=== PATIENT | male | born 1940 | race Caucasian/White ===

== ENCOUNTER 2017-08-02 15:57 | Emergency (ER) | payer MEDICARE ==
[~2017-08-02] VITALS: Ht 167.6 cm; Wt 66.8 kg
[~2017-08-02 15:57] MED LIST: LATA.005%O OU; OYST500T77 PO; PROP1TAB67
[2017-08-02 16:04] VITALS: BP 159/63; PULSE 83; RESP 16; TEMP 97.8; O2SAT 98
[2017-08-02] MEDS ORDERED: CENTCHW4 CHEW (16:31)
[2017-08-02] MEDS ORDERED: MAGN500T2 PO (16:31)
[2017-08-02] MEDS ORDERED: CALC1TAB12 PO (16:31)
[2017-08-02] MEDS ORDERED: DOCU250C7 PO (16:31)
[2017-08-02] MEDS ORDERED: PROP40TA3 PO (16:31)
[2017-08-02] MEDS ORDERED: ATOR40TA16 PO (16:31)
[2017-08-02 17:06] LABS: BASOPHIL % 0.7 % (0.0-2.0); EOSINOPHIL # 0.1 TH/MM3 (0-0.4); EOSINOPHIL % 2.5 % (0.0-4.0); HEMATOCRIT 39.3 % (39.0-51.0); LYMPH % 30.7 % (9.0-44.0); LYMPHOCYTE # 1.6 TH/MM3 (1.0-4.8); MEAN CELL VOLUME 90.3 FL (80.0-100.0); MEAN CORPUSCULAR HEMOGLOBIN 29.8 PG (27.0-34.0); MEAN PLATELET VOLUME 7.6 FL (7.0-11.0); MONO % 10.8 % (0.0-8.0); MONOCYTE # 0.6 TH/MM3 (0-0.9); NEUT % 55.3 % (16.0-70.0); PLATELET COUNT 209 TH/MM3 (150-450); RED BLOOD COUNT 4.35 MIL/MM3 (4.50-5.90); WHITE BLOOD COUNT 5.3 TH/MM3 (4.0-11.0)
[2017-08-02 17:30] VITALS: BP 123/61; PULSE 74; RESP 12; O2SAT 97
--- NOTE | 2017-08-02 18:13 | PD ---
HPI Chief Complaint: GI Complaint Time Seen by Provider: 17:42 Travel History International Travel<30 days: No Contact w/Intl Traveler<30days: No Traveled to known affect area: No History of Present Illness HPI GI bleed. States he had a bowel movement this morning with mild constipation otherwise no difficulty. Proceeded to the yard to work states he worked for several hours. When into shower and felt as if the water was slightly more discolored than it should be with general work. States he went to dry himself off and noticed some blood on the towel as well as some blood dropping on the floor as he was standing there. Placed a washcloth with significant amounts of blood per the patient. Colonoscopy 3-4 years ago with benign polyps. No family history of colon cancer. Denies any nausea or vomiting. He is not on any blood thinners. He does not take aspirin. PFSH Past Medical History Arthritis: Yes Asthma: No Autoimmune Disease: No Blood Disorders: No Anxiety: No Depression: No Heart Rhythm Problems: No Cancer: No Cardiovascular Problems: Yes (MITRAL VALVE PROLAPSE) High Cholesterol: Yes Chemotherapy: No Chest Pain: Yes Congestive Heart Failure: No COPD: No Cerebrovascular Accident: No Diabetes: No Diminished Hearing: Yes (BILAT W/HEARING AIDES) Endocrine: No GERD: No Glaucoma: Yes Genitourinary: Yes Headaches: Yes Hepatitis: No Hiatal Hernia: No Hypertension: No Immune Disorder: No Kidney Stones: Yes Musculoskeletal: Yes Neurologic: Yes (HYDROCEPHALUS) Psychiatric: No Reproductive: No Respiratory: No Migraines: No Myocardial Infarction: No Radiation Therapy: No Renal Failure: No Seizures: No Sickle Cell Disease: No Sleep Apnea: No Thyroid Disease: No Ulcer: No Influenza Vaccination: Yes Past Surgical History Abdominal Surgery: Yes (BILATERAL INGUINAL HERNIA, UMBILICUS HERNIA) AICD: No Appendectomy: No Arteriovenous Shunt: No Body Medical Devices: V/P SHUNT Cardiac Surgery: No Cholecystectomy: No Ear Surgery: No Endocrine Surgery: No Eye Surgery: No Genitourinary Surgery: No Gynecologic Surgery: No Insulin Pump: No Joint Replacement: No Neurologic Surgery: Yes (SHUNT FOR HYDROCEPHALUS) Oral Surgery: No Pacemaker: No Thoracic Surgery: No Tonsillectomy: Yes Social History Alcohol Use: Yes (OCCASIONAL) Tobacco Use: No Substance Use: No Allergies-Medications (Allergen,Severity, Reaction): Coded Allergies: aspirin (Unverified Allergy, Severe, HEADACHES, 2/24/18) Reported Meds & Prescriptions Reported Meds & Active Scripts Active Reported Magnesium Oxide 500 Mg Tab 500 Mg PO DAILY Docusate Sodium 250 Mg Cap 250 Mg PO DAILY Calcium 500 +D (Calcium Carbonate-Cholecalciferol) 500-400 Mg-Unit Tab 2 Tab PO DAILY Centrum (Multiple Vitamins W/ Minerals) 1 Chew 1 Tab CHEW DAILY Propranolol (Propranolol HCl) 40 Mg Tab 40 Mg PO Q12HR Atorvastatin (Atorvastatin Calcium) 40 Mg Tab 40 Mg PO HS Review of Systems General / Constitutional: No: Fever Eyes: No: Visual changes HENT: No: Headaches Cardiovascular: No: Chest Pain or Discomfort Respiratory: No: Shortness of Breath Gastrointestinal: Positive: Hematochezia, Constipation, No: Abdominal Pain Genitourinary: No: Dysuria Musculoskeletal: No: Pain Skin: No Rash Neurologic: No: Weakness Psychiatric: No: Depression Endocrine: No: Polydipsia Hematologic/Lymphatic: No: Easy Bruising Physical Exam Narrative GENERAL: Well-nourished, well-developed patient. SKIN: Focused skin assessment warm/dry. HEAD: Normocephalic. EYES: No scleral icterus. No injection or drainage. NECK: Supple, trachea midline. No JVD or lymphadenopathy. CARDIOVASCULAR: Regular rate and rhythm without murmurs, gallops, or rubs. RESPIRATORY: Breath sounds equal bilaterally. No accessory muscle use. GASTROINTESTINAL: Abdomen soft, non-tender, nondistended. MUSCULOSKELETAL: No cyanosis, or edema. BACK: Nontender without obvious deformity. No CVA tenderness. Rectal exam tone is normal, washcloth was placed in his underwear with a mild amount of blood on it. External hemorrhoids noted with 1 actively bleeding open hemorrhoid. Compression applied with resolution of bleeding. Data Data Last Documented VS Vital Signs Date Time Temp Pulse Resp B/P (MAP) Pulse Ox O2 Delivery O2 Flow Rate FiO2 08/02/17 18:27 76 16 120/65 (83) 95 Room Air 08/02/17 16:04 97.8 Orders Orders Complete Blood Count With Diff (08/02/17 16:45) Ct Abd/Pel W Iv Contrast(Rout) (08/02/17 ) Basic Metabolic Panel (Bmp) (08/02/17 18:15) Labs Laboratory Tests Test 08/02/17 16:45 2/24/18 18:20 White Blood Count 5.3 TH/MM3 Red Blood Count 4.35 MIL/MM3 Hemoglobin 13.0 GM/DL Hematocrit 39.3 % Mean Corpuscular Volume 90.3 FL Mean Corpuscular Hemoglobin 29.8 PG Mean Corpuscular Hemoglobin Concent 33.0 % Red Cell Distribution Width 14.0 % Platelet Count 209 TH/MM3 Mean Platelet Volume 7.6 FL Neutrophils (%) (Auto) 55.3 % Lymphocytes (%) (Auto) 30.7 % Monocytes (%) (Auto) 10.8 % Eosinophils (%) (Auto) 2.5 % Basophils (%) (Auto) 0.7 % Neutrophils # (Auto) 3.0 TH/MM3 Lymphocytes # (Auto) 1.6 TH/MM3 Monocytes # (Auto) 0.6 TH/MM3 Eosinophils # (Auto) 0.1 TH/MM3 Basophils # (Auto) 0.0 TH/MM3 CBC Comment DIFF FINAL Differential Comment Blood Urea Nitrogen 24 MG/DL Creatinine 0.98 MG/DL Random Glucose 94 MG/DL Calcium Level 9.3 MG/DL Sodium Level 140 MEQ/L Potassium Level 3.9 MEQ/L Chloride Level 106 MEQ/L Carbon Dioxide Level 29.1 MEQ/L Anion Gap 5 MEQ/L Estimat Glomerular Filtration Rate 74 ML/MIN [facility] Medical Decision Making Medical Screen Exam Complete: Yes Emergency Medical Condition: Yes Differential Diagnosis GI bleed, hemorrhoid, constipation Narrative Course Assessment and plan discussed with patient and at bedside. CBC did not reveal anemia. CT the abdomen and pelvis pending. I think the this is most likely bleeding from a ruptured hemorrhoid. Physician Communication Physician Communication Case discussed and care transferred to Javier Rodriguez MD Aug 02, 2017 18:13
[2017-08-02 18:27] VITALS: BP 120/65; PULSE 76; RESP 16; O2SAT 95
[2017-08-02 18:48] LABS: CALCIUM 9.3 MG/DL (8.5-10.1)
[2017-08-02 18:49] LABS: BICARBONATE 29.1 MEQ/L (21.0-32.0)
[2017-08-02 18:52] LABS: CREATININE 0.98 MG/DL (0.60-1.30)
[2017-08-02] MEDS ORDERED: IOHEXOL 350 MG/ML 10 ML VIAL (for RAD DIAG) IVCONTRAST ONE (19:05)
--- NOTE | 2017-08-02 19:15 | PD ---
Physical Exam Date Seen by Provider: Aug 02, 2017 Time Seen by Provider: 19:14 Narrative Accepted in transfer of care from Dr. Smith Data Data Last Documented VS Vital Signs Date Time Temp Pulse Resp B/P (MAP) Pulse Ox O2 Delivery O2 Flow Rate FiO2 08/02/17 20:37 74 18 124/53 (76) 78 18 127/61 (83) 83 18 109/68 (82) 08/02/17 18:27 95 Room Air 08/02/17 16:04 97.8 Orders Orders Complete Blood Count With Diff (08/02/17 16:45) Ct Abd/Pel W Iv Contrast(Rout) (08/02/17 ) Basic Metabolic Panel (Bmp) (08/02/17 18:15) Orthostatic Vital Signs (08/02/17 19:15) Iohexol 350 Inj (Omnipaque 350 Inj) (08/02/17 19:05) Hemoglobin (Hgb) (08/02/17 20:41) Ed Discharge Order (08/02/17 21:28) Labs Laboratory Tests Test 08/02/17 16:45 08/02/17 18:20 08/02/17 20:50 White Blood Count 5.3 TH/MM3 Red Blood Count 4.35 MIL/MM3 Hemoglobin 13.0 GM/DL 12.6 GM/DL Hematocrit 39.3 % Mean Corpuscular Volume 90.3 FL Mean Corpuscular Hemoglobin 29.8 PG Mean Corpuscular Hemoglobin Concent 33.0 % Red Cell Distribution Width 14.0 % Platelet Count 209 TH/MM3 Mean Platelet Volume 7.6 FL Neutrophils (%) (Auto) 55.3 % Lymphocytes (%) (Auto) 30.7 % Monocytes (%) (Auto) 10.8 % Eosinophils (%) (Auto) 2.5 % Basophils (%) (Auto) 0.7 % Neutrophils # (Auto) 3.0 TH/MM3 Lymphocytes # (Auto) 1.6 TH/MM3 Monocytes # (Auto) 0.6 TH/MM3 Eosinophils # (Auto) 0.1 TH/MM3 Basophils # (Auto) 0.0 TH/MM3 CBC Comment DIFF FINAL Differential Comment Blood Urea Nitrogen 24 MG/DL Creatinine 0.98 MG/DL Random Glucose 94 MG/DL Calcium Level 9.3 MG/DL Sodium Level 140 MEQ/L Potassium Level 3.9 MEQ/L Chloride Level 106 MEQ/L Carbon Dioxide Level 29.1 MEQ/L Anion Gap 5 MEQ/L Estimat Glomerular Filtration Rate 74 ML/MIN [facility] Medical Record Reviewed: Yes Supervised Visit with ROCHELLE: No Interpretation(s) Last Impressions Abdomen/Pelvis CT 08/02/17 0000 Signed Impressions: Service Date/Time: Wednesday, August 02, 2017 19:00 - CONCLUSION: No acute abnormality is identified to explain the clinical symptoms. There is mild sigmoid diverticulosis. No inflammatory changes or mass is seen. James Wong MD CBC & BMP Diagram 08/02/17 16:45 08/02/17 18:20 Calcium Level 9.3 08/02/17 20:50 Vital Signs Date Time Temp Pulse Resp B/P (MAP) Pulse Ox O2 Delivery O2 Flow Rate FiO2 08/02/17 20:37 74 18 124/53 (76) 78 18 127/61 (83) 83 18 109/68 (82) 08/02/17 18:27 76 16 120/65 (83) 95 Room Air 08/02/17 17:30 74 12 123/61 (81) 97 Room Air 08/02/17 16:04 97.8 83 16 159/63 (95) 98 Differential Diagnosis Accepted in transfer of care from Dr. Smith; please refer to his dictation Narrative Course Accepted in transfer of care from Dr. Smith; follow up pending CT and disposition Patient aware of lab results vital signs imaging results and stable for outpatient management with documented noted abnormal hemorrhoids per prior provider and stable hemoglobin over 4 hour window patient will be encouraged to follow-up with his primary care provider and return immediately to the emergency department for any concerns or change in condition Diagnosis Primary Impression: Rectal bleeding Additional Impression: Hemorrhoids Referrals: Primary Care Physician 2 days Patient Instructions: General Instructions Additional Instruction: Increase fluid hydration Follow-up with primary care provider Return to the emergency department for concerns or change in condition Med/Other Pt SpecificInfo: No Change to Meds Disposition: 01 DISCHARGE HOME Condition: Stable Rae Daily MD Aug 02, 2017 19:15
--- NOTE | 2017-08-02 19:23 | RADRPT ---
EXAM DATE/TIME: 08/02/2017 19:00 [place] COMPARISON: CT ABDOMEN & PELVIS W/O CONTRAST, August 12, 2009, 19:19. INDICATIONS : Blood in stool. IV CONTRAST: 75 cc Omnipaque 350 (iohexol) IV ORAL CONTRAST: No oral contrast ingested. RADIATION DOSE: 8.39 CTDIvol (mGy) MEDICAL HISTORY : Cardiovascular disease. Hydrocephalus, Mitral valvle prolapse SURGICAL HISTORY : Inguinal hernia repair. Umbilical hernia repair.Tonsillectomy.AV Shunt ENCOUNTER: Initial ACUITY: 1 day PAIN SCALE: 0/10 LOCATION: Abdomen. TECHNIQUE: Volumetric scanning of the abdomen and pelvis was performed. Using automated exposure control and ad justment of the mA and/or kV according to patient size, radiation dose was kept as low as reasonably achievable to obtain optimal diagnostic quality images. DICOM format image data is available electro nically for review and comparison. FINDINGS: There is mild respiratory motion artifact. LOWER LUNGS: The visualized lower lungs are clear. LIVER: Homogeneous density with 2 low density lesions measuring 9 mm and 15 mm which have density measuremen ts consistent with simple hepatic cysts. There is an incidental 5 mm low-density lesion in the left l obe that is too small to characterize. There is no dilation of the biliary tree. No calcified galls tones. SPLEEN: Normal size without lesion. PANCREAS: Within normal limits. KIDNEYS: Normal in size and shape. There is no mass, stone or hydronephrosis. There are 2 low-density lesions in the left kidney measuring 12 mm and 13 mm both of which have density measurements consistent with simple cysts. ADRENAL GLANDS: Within normal limits. VASCULAR: There is no aortic aneurysm. There is mild atherosclerotic disease. BOWEL/MESENTERY: The stomach, small bowel, and colon demonstrate no acute abnormality. There is no free intraperitone al air or fluid. Appendix is normal. There is sigmoid diverticulosis. ABDOMINAL WALL: There is a small fat containing umbilical hernia. [employer] shunt is present with tubing distal tip in the l eft lower quadrant. No abnormal fluid collection is adjacent to the tip. RETROPERITONEUM: There is no lymphadenopathy. BLADDER: No wall thickening or mass. REPRODUCTIVE: Within normal limits. INGUINAL: No lymphadenopathy is present. There is a small fat containing left inguinal hernia that also contain s fluid. MUSCULOSKELETAL: There are degenerative changes of the lumbar spine. No acute osseous abnormality is identified. CONCLUSION: No acute abnormality is identified to explain the clinical symptoms. There is mild sigmoid diverticul osis. No inflammatory changes or mass is seen. James Wong MD on August 02, 2017 at 19:16 Board Certified Radiologist. This report was verified electronically.
[2017-08-02 20:37] VITALS: BP_SYST 109; BP_SYST 124; BP_SYST 127; BP_DIAS 53; BP_DIAS 61; BP_DIAS 68; RESP 18
[2017-08-02 21:53] VITALS: BP 122/64
== END 2017-08-02 22:02 | disposition home or self-care (01) ==
LOC: PHED 15:57
DX: K62.5 Hemorrhage of anus and rectum (principal); K64.9 Unspecified hemorrhoids; I25.10 Atherosclerotic heart disease of native coronary artery without angina pectoris; I34.1 Nonrheumatic mitral (valve) prolapse; E78.00 Pure hypercholesterolemia, unspecified; G91.9 Hydrocephalus, unspecified; Z98.2 Presence of cerebrospinal fluid drainage device; Z87.442 Personal history of urinary calculi; Z79.899 Other long term (current) drug therapy
CPT/HCPCS: 74177; 80048; 85018; 85025; 99284; Q9967

== ENCOUNTER 2018-02-04 18:04 | Observation (INO) ==
[2018-02-04 18:23] LABS: Baso % (Auto) 0.7 % (0.0-2.0); Eos # (Auto) 0.1 th/mm3 (0.0-0.4); Eos % (Auto) 1.3 % (0.0-4.0); Hemoglobin 13.9 gm/dL (13.0-17.0); Lymph # (Auto) 1.5 th/mm3 (1.0-4.8); Mean Corpuscular HGB Conc 33.1 % (32.0-36.0); Mean Corpuscular Hemoglobin 30.2 pg (27.0-34.0); Mean Corpuscular Volume 91.3 fL (80.0-100.0); Mean Platelet Volume 7.9 fL (7.0-11.0); Mono # (Auto) 0.7 th/mm3 (0.0-0.9); Mono % (Auto) 12.8 % (0.0-8.0); Neut # (Auto) 3.2 th/mm3 (1.8-7.7); Neut % (Auto) 58.2 % (16.0-70.0); Platelet Count 183 th/mm3 (150-450); Red Cell Distribution Width 13.2 % (11.6-17.2); White Blood Count 5.5 th/mm3 (4.0-11.0)
[2018-02-04 18:31] LABS: Chloride 105 meq/L (98-107); Potassium 3.8 meq/L (3.5-5.1); Sodium 141 meq/L (136-145)
[2018-02-04 18:34] LABS: Calcium 9.3 mg/dL (8.5-10.1)
--- NOTE | 2018-02-04 18:34 | ED ---
HPI General Chief complaint: Chest Pain Stated complaint: CHEST PAIN Time Seen by Provider: 02/04/18 19:42 Source: patient, family, RN notes reviewed and old records reviewed Mode of arrival: ambulatory History of Present Illness HPI narrative: 77yM presenting with left chest/ shoulder pain. The patient states that approximately 30 minutes prior to arrival he began to have "pressure -like" left upper chest/ shoulder pain which radiates into his arm, moderate intensity, severe, constant, not made better or worse by anything, associated with diaphoresis. He denies lightheadedness, chest pain, dyspnea, or palpitations. Family history significant for brother with fatal DE in his late 70s and father with fatal DE in his 90s. Related Data Home Medications Medication Instructions Recorded Confirmed acetaminophen 650 mg PO Q8H 02/04/18 02/04/18 aspirin 162 mg PO ONCE 02/04/18 02/04/18 atorvastatin 40 mg PO HS 02/04/18 02/04/18 docusate sodium [Stool Softener] 100 mg PO DAILY 02/04/18 02/04/18 gabapentin 200 mg PO BID 02/04/18 02/04/18 hydrocodone-acetaminophen 1 tab PO Q4-6H PRN 02/04/18 02/04/18 magnesium 500 mg PO DAILY 02/04/18 02/04/18 tamsulosin 0.4 mg PO HS 02/04/18 02/04/18 therapeutic multivitamin 1 tab PO DAILY 02/04/18 02/04/18 [Thera-Tabs] Allergies Allergy/AdvReac Type Severity Reaction Status Date / Time aspirin Allergy Severe HEADACHES Verified 02/04/18 18:28 Review of Systems ROS: all other systems reviewed are negative Constitutional Denies fever(s) Eyes Denies blurry vision ENT Denies nasal congestion Cardiovascular Denies dyspnea Respiratory Denies dyspnea Gastrointestinal Denies nausea Genitourinary Denies dysuria Musculoskeletal Denies back pain Neurologic Denies confusion Psychiatric Denies confusion PMFSH History History Provided By: Patient Social History Social History Substance History: No History of Abuse Second Hand Smoke Exposure: No Smoking Status: Former smoker How Often Do You Have a Drink Containing Alcohol: 2 to 4 times a month Recent Travel in [facility] within the Last 8 Weeks: No Recent Out of Country Travel within the Last 8 Weeks: No Exam Const General: healthy appearing and no acute distress HENMT Head: normocephalic and atraumatic Face and sinus: normal facial exam Eyes General: appearance normal, both eyes and all related structures Pupils: PERRL Chest Chest: normal inspection of the chest Resp Effort & Inspection: normal respiratory effort Auscultation: no rhonchi and no wheezes Other: Lungs clear to auscultation bilaterally Cardio Rate: regular rate Rhythm: regular rhythm GI Inspection: non-distended Palpation: soft and nontender Skin Other: Palms are mildly diaphoretic Neuro General: alert, awake, oriented x3 and no focal motor deficits Psych Affect: normal affect Course Initial Documented Vital Signs Temperature 97.5 F L 02/04/18 18:28 Pulse Rate 97 H 02/04/18 18:28 Respiratory Rate 18 02/04/18 18:28 Blood Pressure 128/69 02/04/18 18:28 Pulse Oximetry 98 02/04/18 18:28 Last Documented Vital Signs Temperature 98.6 F 02/04/18 21:45 Pulse Rate 78 02/04/18 22:00 Respiratory Rate 20 02/04/18 21:45 Blood Pressure 111/71 02/04/18 21:45 Pulse Oximetry 97 02/04/18 21:45 Sign Out Sign Out Data: Patient Sign Out occurred on 02/04/18 at 19:42. Patient's care was discussed, and care was transferred from Yesi Thakur DO to Rae Daily MD. Sign Out Comment: Patient needs chest pain center obs, HEART score 5 Took aspirin prior to arrival Last updated by Yesi Thakur DO at 02/04/18 19:40 Post-Handoff Eval: Accepted in transfer of care for patient admission to chest pain center per protocol Clinical Decision Support HEART Score Questions History: Moderately suspicious EKG: Non-specific repolarization disturbance Age: 65 years+ Risk Factors: 1-2 Risk Factors Initial Troponin: Normal Limit Heart Score HEART Score: 5 Medical Decision Making MDM Narrative Medical decision making narrative: Assessment: 77yM presenting with left shoulder/ arm pain and diaphoresis Plan: EKG and monitor CXR Labs Patient already took 162 mg aspirin prior to arrival Accepted in transfer of care from Dr. Thakur to arrange admission for chest pain center per protocol; discussed with and accepted by Dr. Thompson for chest pain center per protocol Medical Screen Exam Complete: Yes Emergency Medical Condition: Yes Differential Diagnosis Differential Diagnosis: Differential diagnosis includes, but is not limited to: ACS, pericarditis, pneumonia, pleural effusion, radiculopathy, musculoskeletal pain Lab Data Result diagrams: 02/04/18 18:20 02/04/18 18:20 Lab Results 02/04/18 02/04/18 02/04/18 Range/Units 18:20 18:20 18:20 CBC w Diff Auto diff final WBC 5.5 (4.0-11.0) th/mm3 RBC 4.60 (4.50-5.90) mil/mm3 Hgb 13.9 (13.0-17.0) gm/dL Hct 42.0 (39.0-51.0) % MCV 91.3 (80.0-100.0) fL MCH 30.2 (27.0-34.0) pg MCHC 33.1 (32.0-36.0) % RDW 13.2 (11.6-17.2) % Plt Count 183 (150-450) th/mm3 MPV 7.9 (7.0-11.0) fL Neut % (Auto) 58.2 (16.0-70.0) % Lymph % (Auto) 27.0 (9.0-44.0) % Ray % (Auto) 12.8 H (0.0-8.0) % Eos % (Auto) 1.3 (0.0-4.0) % Baso % (Auto) 0.7 (0.0-2.0) % Neut # (Auto) 3.2 (1.8-7.7) th/mm3 Lymph # (Auto) 1.5 (1.0-4.8) th/mm3 Ray # (Auto) 0.7 (0.0-0.9) th/mm3 Eos # (Auto) 0.1 (0.0-0.4) th/mm3 Baso # (Auto) 0.0 (0.0-0.2) th/mm3 WBC Differential . Differential Comment . PT 10.8 (9.8-11.6) sec INR 1.1 Ratio Sodium 141 (136-145) meq/L Potassium 3.8 (3.5-5.1) meq/L Chloride 105 (98-107) meq/L Carbon Dioxide 28.7 (21.0-32.0) meq/L Anion Gap 7 (5-15) meq/L BUN 25 H (7-18) mg/dL Creatinine 1.20 (0.60-1.30) mg/dL Estimated GFR 58 L (>89) mL/min Random Glucose 108 H (74-106) mg/dL Calcium 9.3 (8.5-10.1) mg/dL Magnesium 2.1 (1.5-2.5) mg/dL Total Bilirubin 0.8 (0.2-1.0) mg/dL AST 11 L (15-37) U/L ALT 17 (12-78) U/L Alkaline Phosphatase 55 (45-117) U/L Total Creatine Kinase (39-308) U/L Troponin I Less than 0.02 L (0.02-0.05) ng/mL Total Protein 7.4 (6.4-8.2) g/dL Albumin 3.9 (3.4-5.0) g/dL 02/04/18 02/05/18 Range/Units 21:12 00:01 CBC w Diff WBC (4.0-11.0) th/mm3 RBC (4.50-5.90) mil/mm3 Hgb (13.0-17.0) gm/dL Hct (39.0-51.0) % MCV (80.0-100.0) fL MCH (27.0-34.0) pg MCHC (32.0-36.0) % RDW (11.6-17.2) % Plt Count (150-450) th/mm3 MPV (7.0-11.0) fL Neut % (Auto) (16.0-70.0) % Lymph % (Auto) (9.0-44.0) % Ray % (Auto) (0.0-8.0) % Eos % (Auto) (0.0-4.0) % Baso % (Auto) (0.0-2.0) % Neut # (Auto) (1.8-7.7) th/mm3 Lymph # (Auto) (1.0-4.8) th/mm3 Ray # (Auto) (0.0-0.9) th/mm3 Eos # (Auto) (0.0-0.4) th/mm3 Baso # (Auto) (0.0-0.2) th/mm3 WBC Differential Differential Comment PT (9.8-11.6) sec INR Ratio Sodium (136-145) meq/L Potassium (3.5-5.1) meq/L Chloride (98-107) meq/L Carbon Dioxide (21.0-32.0) meq/L Anion Gap (5-15) meq/L BUN (7-18) mg/dL Creatinine (0.60-1.30) mg/dL Estimated GFR (>89) mL/min Random Glucose (74-106) mg/dL Calcium (8.5-10.1) mg/dL Magnesium (1.5-2.5) mg/dL Total Bilirubin (0.2-1.0) mg/dL AST (15-37) U/L ALT (12-78) U/L Alkaline Phosphatase (45-117) U/L Total Creatine Kinase 44 47 (39-308) U/L Troponin I Less than 0.02 L Less than 0.02 L (0.02-0.05) ng/mL Total Protein (6.4-8.2) g/dL Albumin (3.4-5.0) g/dL Imaging Data Radiologist's impression: Chest X-Ray 02/04/18 18:13 CONCLUSION: No acute abnormality is seen. ECG Data Attestation: I personally reviewed and interpreted this ECG as follows: Interpretation: Rate: 96 BPM Rhythm: Sinus [place]: Normal Intervals: Incomplete RBBB, QTc 435 ms Q waves: None T waves: Flattened in III, aVL ST segments: No elevations or depressions Impression: Non-specific EKG, no significant changes as compared to EKG from . Discharge Plan Discharge Disposition Patient Disposition: 30 Still Patient Discharge Condition Condition: Stable Discharge Details Diagnosis: Chest pain Physicians Team ED Provider: Rae Daily Primary Care Provider: Claudio Krishnamurthy Attending Provider: Tim Thompson Status ED Status: Left Department Discharge Information Discharge Date/Time: 02/04/18 21:34
[2018-02-04 18:35] LABS: Albumin 3.9 g/dL (3.4-5.0); Anion Gap 7 meq/L (5-15); Blood Urea Nitrogen 25 mg/dL (7-18); Carbon Dioxide 28.7 meq/L (21.0-32.0); Glucose,Random 108 mg/dL (74-106); INR 1.1 Ratio; Magnesium 2.1 mg/dL (1.5-2.5); Prothrombin Time 10.8 sec (9.8-11.6)
[2018-02-04 18:38] LABS: Alanine Aminotransferase 17 U/L (12-78); Aspartate Aminotransferase 11 U/L (15-37); Glomerular Filtration Rate 58 mL/min (>89)
[2018-02-04 18:40] LABS: Total Protein 7.4 g/dL (6.4-8.2)
[2018-02-04 18:41] LABS: Alkaline Phosphatase 55 U/L (45-117)
--- NOTE | 2018-02-04 19:12 | XR ---
EXAM DATE: 02/04/2018 7:07 PM EDT AGE/SEX: 77 years / Male INDICATIONS: Chest pain. CLINICAL DATA: This is the patient's initial encounter. Patient reports that signs and symptoms have been present for 2 days and indicates a pain score of 4/10. MEDICAL/SURGICAL HISTORY: None. None. COMPARISON: No prior exams available for comparison. FINDINGS: The heart size is normal. The aorta appears tortuous. The lungs are clear. No effusion is seen. There is a right internal jugular central line in place with the tip overlying the SVC. There is a surgica l fastener seen at the left proximal humerus. There is a dextrocurvature of the thoracic spine. CONCLUSION: No acute abnormality is seen. Electronically signed by: James Kilgore MD 02/04/2018 7:11 PM EDT
[2018-02-04 22:07] LABS: Creatine Kinase 44 U/L (39-308)
[2018-02-04] MEDS: Gabapentin 100 MG Capsule PO SCH (23:56)
[2018-02-05 00:50] LABS: Creatine Kinase 47 U/L (39-308)
[2018-02-05 00:55] VITALS: RESP 20
[2018-02-05 06:14] VITALS: BP 103/57; TEMP 97.5; O2SAT 98
--- NOTE | 2018-02-05 08:07 | P.HP ---
History of Present Illness Primary Care Physician: Claudio Krishnamurthy MD Chief Complaint: Left neck, left shoulder pain History of Present Illness: 77-year-old male with known history of angina, hyperlipidemia who presented the hospital because of left neck, left shoulder pain. Patient states that he was in his normal state of health until approximately 530 yesterday afternoon when he was sitting in his chair watching TV and noticed a pain in his left shoulder and started going up into his left side of his neck down to his left forearm. He had associated diaphoresis and because it did not go away within 30 minutes him and his came to the emergency department for evaluation. Patient states that the pain was a 6/10 on a pain scale. Patient indicates that the pain resolved on its own by 7 PM. Patient was not given any medications in the emergency department. He denied any actual chest pain, shortness of breath, distally breathing, lightheadedness, dizziness. Patient does follow with cardiology Dr. Vidal, patient states that he had a stress test done approximately 1 year ago and was normal. Patient states that he has been hospitalized in the past at least 2 times for angina. Patient currently asymptomatic. - Diagnosis (1) Chest pain Review of Systems All other systems reviewed negative except as stated in HPI Constitutional: Reports excessive sweating Musculoskeletal: Reports joint pain (Left shoulder pain), Reports neck pain PMFSH - History History Provided By: Patient - Medical History Medical History: Medical History (Last Reviewed 02/05/18 @ 07:56 by MUSTAPHA Kim) Bilateral hearing loss History of angina History of high cholesterol History of prostate disorder Migraine - Surgical History Surgical History: Surgical History (Last Updated 02/05/18 @ 07:56 by MUSTAPHA Kim) History of cataract surgery History of hernia surgery History of neck surgery History of repair of left rotator cuff - Family History Family History: Family History (Last Updated 02/05/18 @ 07:57 by MUSTAPHA Kim) Father History of myocardial infarction Brother History of heart disease - Tobacco History Second Hand Smoke Exposure: No Tobacco Use In Past 30 Days: No Smoking Status: Former smoker Number of Pack Years (if former smoker): 8 (Patient quit smoking 55 years ago) - Alcohol History How Often Do You Have a Drink Containing Alcohol: 2 to 4 times a month - Substance Use History Substance History: No History of Abuse - Travel History Recent Travel in the [facility] Within the Last 8 Weeks: No Recent Travel Out of the Country Within the Last 8 Weeks: No - Immunization History Tetanus Immunization: Unsure Hx Influenza Vaccine This Season: Yes Medications and Allergies Active Medications: Active Medications Hydrocodone Bitart/Acetaminophen (Fisher 5/325) 1 tab PO Q6H PRN PRN Reason: Migraine Headache Aspirin (Aspirin Chew) 162 mg PO DAILY [facility] Atorvastatin Calcium (Lipitor) 40 mg PO [facility] Last Admin: 02/04/18 23:57 Dose: 40 mg Gabapentin (Neurontin) 200 mg PO BID [facility] Last Admin: 02/04/18 23:56 Dose: 200 mg Magnesium Oxide (Mag-Ox) 400 mg PO DAILY [facility] Sodium Chloride (Ns Flush) 2 ml IV.FLUSH UNSCH PRN PRN Reason: FLUSH AFTER USING IV ACCESS Sodium Chloride (Ns Flush) 2 ml IV.FLUSH BID [facility] Last Admin: 02/04/18 23:57 Dose: 2 ml Sodium Chloride (Ns Flush) 2 ml IV.FLUSH PRN PRN PRN Reason: FLUSH AFTER USING IV ACCESS Tamsulosin HCl (Flomax) 0.4 mg PO [facility] Last Admin: 02/04/18 23:57 Dose: 0.4 mg Allergies Allergy/AdvReac Type Severity Reaction Status Date / Time aspirin Allergy Severe HEADACHES Verified 02/04/18 18:28 Home Medications Medication Instructions Recorded Confirmed Type acetaminophen 650 mg PO Q8H 02/04/18 02/04/18 History aspirin 162 mg PO ONCE 02/04/18 02/04/18 History atorvastatin 40 mg PO HS 02/04/18 02/04/18 History docusate sodium [Stool Softener] 100 mg PO DAILY 02/04/18 02/04/18 History gabapentin 200 mg PO BID 02/04/18 02/04/18 History hydrocodone-acetaminophen 1 tab PO Q4-6H PRN 02/04/18 02/04/18 History magnesium 500 mg PO DAILY 02/04/18 02/04/18 History tamsulosin 0.4 mg PO HS 02/04/18 02/04/18 History therapeutic multivitamin 1 tab PO DAILY 02/04/18 02/04/18 History [Thera-Tabs] Exam Vital signs: Vital Signs 02/04/18 18:28 02/04/18 18:30 02/04/18 20:57 Temperature 97.5 F L Pulse Rate 97 H 92 H 85 Respiratory Rate 18 18 Blood Pressure 128/69 151/67 H 118/87 Pulse Oximetry 98 97 97 02/04/18 21:45 02/04/18 22:00 02/05/18 04:00 Temperature 98.6 F 97.5 F L Pulse Rate 79 78 76 Respiratory Rate 20 20 Blood Pressure 111/71 103/57 L Pulse Oximetry 97 98 Intake & Output 02/04/18 02/05/18 02/05/18 18:59 06:59 18:59 Intake Total 120 / 120 Balance 120 / 120 Weight 68.9 kg 68.2 kg Intake: Oral 120 / 120 Other: # Voids 1 Weight On Admission 68.2 kg Narrative: GENERAL: Well-developed, well-nourished, in no acute distress. alert and orientated HEENT: Head is normocephalic without any lesions or masses noted. Facial features are symmetric. Eyes: Pupils equal round reactive to light. Extraocular muscles are intact. Conjunctivae were clear. Oropharyngeal: Pharynx without any erythema edema. Tongue is midline without deviation. Buccal mucosa is moist without any masses or lesions. Patient is hard of hearing NECK: Supple without any masses. Trachea midline no deviation. No JVD, no bruits are appreciated CARDIAC: Regular rhythm, regular rate. S1/S2 are heard. No murmurs gallops or rubs. LUNGS: Clear to auscultation bilaterally. No wheeze, rhonchi or rales. No use of accessory muscles on inspiration or expiration. ABDOMEN: Soft, nontender. Nondistended. Bowel sounds heard in all 4 quadrants. No organomegaly or masses. Negative rebound, negative guarding EXTREMITIES: No edema, pulses are equal bilaterally. No cyanosis or clubbing NEUROLOGY: Mood and affect appear appropriate. Cranial nerves II through XII grossly intact. Muscle strength 5/5 in upper and lower extremities bilaterally. Deep tendon reflexes are 2+ in upper and lower extremities bilaterally. Results - Labs CBC & Chem 7: 02/04/18 18:20 02/04/18 18:20 Labs: Laboratory Results - last 24 hr 02/04/18 02/04/18 02/04/18 18:20 18:20 18:20 CBC w Diff Auto diff final WBC 5.5 RBC 4.60 Hgb 13.9 Hct 42.0 MCV 91.3 MCH 30.2 MCHC 33.1 RDW 13.2 Plt Count 183 MPV 7.9 Neut % (Auto) 58.2 Lymph % (Auto) 27.0 [place]ee % (Auto) 12.8 H Eos % (Auto) 1.3 Baso % (Auto) 0.7 Neut # (Auto) 3.2 Lymph # (Auto) 1.5 [place]ee # (Auto) 0.7 Eos # (Auto) 0.1 Baso # (Auto) 0.0 WBC Differential . Differential Comment . PT 10.8 INR 1.1 Sodium 141 Potassium 3.8 Chloride 105 Carbon Dioxide 28.7 Anion Gap 7 BUN 25 H Creatinine 1.20 Estimated GFR 58 L Random Glucose 108 H Calcium 9.3 Magnesium 2.1 Total Bilirubin 0.8 AST 11 L ALT 17 Alkaline Phosphatase 55 Total Creatine Kinase Troponin I Less than 0.02 L Total Protein 7.4 Albumin 3.9 02/04/18 02/05/18 21:12 00:01 CBC w Diff WBC RBC Hgb Hct MCV MCH MCHC RDW Plt Count MPV Neut % (Auto) Lymph % (Auto) [place] % (Auto) Eos % (Auto) Baso % (Auto) Neut # (Auto) Lymph # (Auto) [place] # (Auto) Eos # (Auto) Baso # (Auto) WBC Differential Differential Comment PT INR Sodium Potassium Chloride Carbon Dioxide Anion Gap BUN Creatinine Estimated GFR Random Glucose Calcium Magnesium Total Bilirubin AST ALT Alkaline Phosphatase Total Creatine Kinase 44 47 Troponin I Less than 0.02 L Less than 0.02 L Total Protein Albumin - Imaging Impressions Chest X-Ray 02/04/18 18:13 CONCLUSION: No acute abnormality is seen. Caprini VTE Risk Assessment Caprini VTE Risk Assessment: Moderate/High Risk (score >= 2) Caprini Risk Assessment Model: Point Value = 1 Point Value = 2 Point Value = 3 Point Value = 5 Age 41-60 Minor surgery BMI > 25 kg/m2 Swollen legs Varicose veins or History of unexplained or recurrent spontaneous Oral contraceptives or hormone replacement Sepsis (< 1 month) Serious lung disease, including pneumonia (< 1 month) Abnormal pulmonary function Acute myocardial infarction Congestive heart failure (< 1 month) History of inflammatory bowel disease Medical patient at bed rest Age 61-74 Arthroscopic surgery Major open surgery (> 45 min) Laparoscopic surgery (> 45 min) Malignancy Confined to bed (> 72 hours) Immobilizing plaster cast Central venous access Age >= 75 History of VTE Family history of VTE Factor V Leiden Prothrombin [id number] Lupus anticoagulant Anticardiolipin antibodies Elevated serum homocysteine Heparin-induced thrombocytopenia Other congenital or acquired thrombophilia Stroke (< 1 month) Elective arthroplasty Hip, pelvis, or leg fracture Acute spinal cord injury (< 1 month) Prophylaxis Regimen: Total Risk Factor Score Risk Level Prophylaxis Regimen 0-1 Low Early ambulation 2 Moderate Order ONE of the following: *Sequential Compression Device (SCD) *Heparin 5000 units SQ BID 3-4 Higher Order ONE of the following medications: *Heparin 5000 units SQ TID *Enoxaparin/Lovenox 40 mg SQ daily (WT < 150 kg, CrCl > 30 mL/min) *Enoxaparin/Lovenox 30 mg SQ daily (WT < 150 kg, CrCl > 10-29 mL/min) *Enoxaparin/Lovenox 30 mg SQ BID (WT < 150 kg, CrCl > 30 mL/min) AND/OR *Sequential Compression Device (SCD) 5 or more Highest Order ONE of the following medications: *Heparin 5000 units SQ TID (Preferred with Epidurals) *Enoxaparin/Lovenox 40 mg SQ daily (WT < 150 kg, CrCl > 30 mL/min) *Enoxaparin/Lovenox 30 mg SQ daily (WT < 150 kg, CrCl > 10-29 mL/min) *Enoxaparin/Lovenox 30 mg SQ BID (WT < 150 kg, CrCl > 30 mL/min) AND *Sequential Compression Device (SCD) Assessment and Plan - Assessment (1) Chest pain Code(s): R07.9 - Chest pain, unspecified Status: Acute - Plan Chest pain, atypical -Patient does have increased risk factors include age, history of tobacco use, hyperlipidemia, angina, family history of heart disease. -Symptoms could be angina component -Patient has been ruled out for acute coronary event with serial cardiac enzymes that are negative -Serial EKGs were performed and reviewed by myself which did show incomplete right bundle branch block, no changes -Myocardial perfusion study was performed and indicated normal exam, no signs of ischemia, low risk -Continue monitor telemetry -Patient continued on aspirin Hyperlipidemia, benign prostatic hypertrophy -Home medications were continued DVT prevention -Sequential compression devices Discharge Planning: Discharge home in stable condition Activity: Ad jim. Diet: Healthy heart diet Medication per medication reconciliation Follow-up with primary medical doctor in 1 week
[2018-02-05] MEDS: Gabapentin 100 MG Capsule PO SCH (08:55)
[2018-02-05] MEDS ORDERED: Magnesium Oxide 400 MG Tablet PO SCH (09:00)
[2018-02-05 09:39] VITALS: PULSE 75
[2018-02-05] MEDS ORDERED: Regadenoson Inj 0.4 MG/5 ML Syringe IV.PUSH ONE (10:18)
--- NOTE | 2018-02-05 10:59 | ECG ---
Date Performed: 02/04/2018 Time Performed: 23:08:46 PTAGE: 77 years EKG: Sinus rhythm POSSIBLE LEFT ATRIAL ENLARGEMENT INDETERMINATE AXIS INCOMPLETE RIGHT BUNDLE BRANCH BLOCK POSSIBLE RI GHT VENTRICULAR HYPERTROPHY NONSPECIFIC ST & T-WAVE ABNORMALITY ABNORMAL ECG Since the PREVIOUS TRACING , no significant change noted PREVIOUS TRACIN02/04/2018 21.14 DOCTOR: Romie Leon Interpretating Date/Time 02/05/2018 10:57:32
--- NOTE | 2018-02-05 11:03 | ECG ---
Date Performed: 02/04/2018 Time Performed: 18:07:35 PTAGE: 77 years EKG: Normal Sinus rhythm Right Corder deviation Left Atrial Abnormality Possible Right Ventricular Hypertrophy ABNORMAL ECG PREVIOUS TRACING : 02/01/2007 02.27 Since the previous tracing, no significant change noted DOCTOR: Romie Leon Interpretating Date/Time 02/05/2018 11:03:14
--- NOTE | 2018-02-05 11:05 | ECG ---
Date Performed: 02/04/2018 Time Performed: 21:14:54 PTAGE: 77 years EKG: Normal Sinus rhythm Right Plato deviation Left Atrial Abnormality Possible Incomplete Right Bundle Branch Block ABNORMAL ECG PREVIOUS TRACING : 02/04/2018 18.07 Since the previous tracing, no significant change noted DOCTOR: Romie Leon Interpretating Date/Time 02/05/2018 11:04:07
--- NOTE | 2018-02-05 11:36 | NM ---
EXAM DATE: 02/05/2018 11:25 AM EDT AGE/SEX: 77 years / Male INDICATIONS:Angina. . Left sided chest pain. CLINICAL DATA: This is the patient's initial encounter. Patient reports that signs and symptoms have been present for 2 days and indicates a pain score of 6/10. MEDICAL/SURGICAL HISTORY: Hypercholesterolemia. Inguinal hernia repair. COMPARISON: No prior exams available for comparison. DOSE: 8.2 mCi Tc 99m Myoview at rest 26.3 mCi [id number] at stress 0.4 mg Lexiscan STRESS SYMPTOMS: None. EJECTION FRACTION: >70 % TECHNIQUE: The patient underwent pharmacologic stress with infusion of prescribed dose. Continuous ECG tracing was monitored during stress. Gated SPECT imaging was performed after stress and conventi onal SPECT imaging was performed at rest. The examination was performed on a SPECT/CT scanner, both attenuation and non-corrected datasets were reviewed. FINDINGS: Distribution: The maximum perfused segment at stress is in the septal wall. Perfusion Study: The pattern of perfusion at stress is within normal limits. Gated Study: There are intact wall motion and wall thickening without hypokinetic or dyskinetic segm ents. The ejection fraction is calculated at >70%. RISK CATEGORY: Low (<1% Annual Motality Rate) CONCLUSION: 1. Unremarkable myocardial perfusion study. Electronically signed by: Shan Ron MD 02/05/2018 11:35 AM EDT
--- NOTE | 2018-02-05 15:57 | TR ---
Date Performed: 02/05/2018 Time Performed: 10:38:29 DOCTOR: Raimundo Schofield DRUG LIST: CLINICAL HISTORY: REASON FOR TEST: REASON FOR ENDING: OBSERVATION: CONCLUSION: COMMENTS: Lexiscan stress test was performed under standard four minute protocol. Radionuclide was injected one minute prior to ending the test. No electrocardiographic abormalities were present t o suggest ischemia. Nuclear imaging and interpretation are pending.
== END 2018-02-05 13:30 | disposition home or self-care (01) ==
LOC: PHED 18:04 → PHEDA 18:04 → PH3 21:23
PROVIDERS: ADMIT Hospitalist; ATTEND Hospitalist